=== PATIENT | male | born 1990 | race Two or more races ===

== ENCOUNTER 2025-07-22 14:41 | Emergency (ER) | payer MEDICAID, SELFPAY ==
[2025-07-22 14:42] VITALS: BMI 34.4
[2025-07-22 14:53] VITALS: BP 151/89; PULSE 95; RESP 18; TEMP 36.4; O2SAT 97
--- NOTE | 2025-07-22 16:03 | EDRME_ITS ---
Rapid Medical Screening Exam E Arrival date/time: 07/22/25 14:41 This is a 35-year-old male that is brought in by mother with complaints of right eye pressure right eye pain. Per patient's mother who is historian because patient is disabled and is bipolar. Patient started having symptoms 3 years ago. Patient sees a doctor in [facility]. Mom does not know the actual diagnoses but was told that the cornea is hard and he possibly needed a transplant. Patient recently saw dog license officer supervisor in May and per dog license officer supervisor eye looked like it was healing. Per patient's mother on Wednesday 3 days ago eye started hurting and is more swollen. Patient complains of eye pressure, eye swelling, and eye pain. I have greeted and performed a focused initial assessment of this patient. current eye drops: [id number] eye ointment. Tobramycin.dexamethazone eye drops. Initial appropriate labs ordered at this time. A comprehensive ED assessment and evaluation of the patient and analysis of all test and completion of medical decision making process will be conducted by additional ED provider. Chief Complaint: Eye Problems Time Seen by Provider: 07/22/25 14:56 Vital signs: Vital Signs Temperature 97.6 F 07/22/25 14:53 Pulse Rate 95 07/22/25 14:53 Respiratory Rate 18 07/22/25 14:53 Blood Pressure 151/89 H 07/22/25 14:53 Pulse Oximetry (%) 97 07/22/25 14:53 Oxygen Delivery Method Room Air 07/22/25 14:53
--- NOTE | 2025-07-22 16:27 | EDNOTE_ITS ---
ED Eye Problem RME/HPI General Chief complaint: Eye Problems Stated complaint: PRESSURE RIGHT EYE X 3 DAYS, HX OF Time Seen by Provider: 07/22/25 14:56 Arrival date/time: 07/22/25 14:41 This is a 35-year-old male that is brought in by mother with complaints of right eye pressure right eye pain. Per patient's mother who is historian because patient is disabled and is bipolar. Patient started having symptoms 3 years ago. Patient sees a doctor in [facility]. Mom does not know the actual diagnoses but was told that the cornea is hard and he possibly needed a transplant. Patient recently saw cooperage shop supervisor in May approximately and per cooperage shop supervisor eye looked like it was healing. Per patient's mother on Wednesday 3 days ago eye started hurting and is more swollen. Patient complains of eye pressure, eye swelling, and eye pain. I have greeted and performed a focused initial assessment of this patient. Pt hx of bipolar disorder current eye drops: [id number] eye ointment. Tobramycin.dexamethazone eye d RME / HPI RME / HPI Narrative: 07/22/25 14:41 This is a 35-year-old male that is brought in by mother with complaints of right eye pressure right eye pain. Per patient's mother who is historian because patient is disabled and is bipolar. Patient started having symptoms 3 years ago. Patient sees a doctor in [facility]. Mom does not know the actual diagnoses but was told that the cornea is hard and he possibly needed a transplant. Patient recently saw cooperage shop supervisor in May approximately and per cooperage shop supervisor eye looked like it was healing. Per patient's mother on Wednesday 3 days ago eye started hurting and is more swollen. Patient complains of eye pressure, eye swelling, and eye pain. I have greeted and performed a focused initial assessment of this patient. current eye drops: [id number] eye ointment. Tobramycin.dexamethazone eye drops. Initial appropriate labs ordered at this time. A comprehensive ED assessment and evaluation of the patient and analysis of all test and completion of medical decision making process will be conducted by additional ED provider. Related Data Home Medications ?Medication ?Instructions ?Recorded ?Confirmed quetiapine 400 mg tablet,extended 600 mg PO DAILY ##0 02/10/13 03/28/18 release 24 hr (Seroquel XR) zolpidem 5 mg tablet (Ambien) 5 mg PO HS #0 tabs 07/2603/28/18 aripiprazole 15 mg tablet (Abilify) 15 mg PO QDAY #0 t abs 08/12/14 03/28/18 Previous Rx's ?Medication ?Instructions ?Recorded ibuprofen 800 mg tablet 800 mg PO TID PRN pain #30 t abs 03/12/21 doxycycline hyclate 100 mg tablet 100 mg PO BID #20 ta bs 01/03/24 Allergies Allergy/AdvReac Type Severity Reaction Status Date / Time No Known Allergies Allergy Verified 07/22/25 14:44 Review of Systems Review of Systems Systems Reviewed: All systems reviewed, normal except as documented Past Medical History Past Medical History CARDIAC: Negative Congestive Heart Failure RESPIRATORY: Negative Chronic Obstructive Pulmonary Disease (COPD) GENITOURINARY: Negative Renal Disease ENDOCRINE: Negative Diabetes Mellitus Type 1 or Diabetes Mellitus Type 2 OTHER HISTORY: Negative Blood Transfusions Social History SMOKING STATUS: Current every day smoker Travel History EBOLA RISK: No ED Exam Narrative Physical exam: VITAL SIGNS: Reviewed. GENERAL APPEARANCE: Alert and interactive, follows commands, no acute distress eyes: Right eye has corneal edema and right corneal enlargement. Conjunctive looks erythemic. HEAD AND FACE: Non-traumatic. ENT: PERRL, conjuctiva pink and clear, eyelid no trauma, Mucous membrane moist. NECK: Supple, nontender, no nuchal rigidity. CHEST: No tenderness, no crepitus, no paradoxical movement, no retractions. LUNGS: breathing even and unlabored HEART: Regular rate, cap refill less than 2 seconds ABDOMEN: Soft, nondistended NEUROLOGICAL: Gross motor function intact sensory function intact, Appropriate for age. MUSCULOSKELETAL: low back nontender, full range of motion. EXTREMITIES: No redness no swelling no skin breakdown on bilateral foot and leg. Distal neurovascular status intact bilateral foot SKIN: Color pink, dry, no rash, no lacerations, no abrasions, no contusions. Course Quality Measures none Vital Signs Vital signs: Vital Signs Temperature 97.6 F 07/22/25 14:53 Pulse Rate 95 07/22/25 14:53 Respiratory Rate 18 07/22/25 14:53 Blood Pressure 151/89 H 07/22/25 14:53 Pulse Oximetry (%) 97 07/22/25 14:53 Oxygen Delivery Method Room Air 07/22/25 14:53 Eye MDM Narrative MDM Narrative:: I tried calling cooperage shop supervisor office [facility]. There was a doctor on-call and answered the phone. He states he is not familiar with patient's case as he works for a different practice. He does not have access to [facility] medical records. I discussed case with Dr. Erickson who came and assessed patient at the bedside. This is a chronic issue. Per patient mother patient has little to no vision on that right eye but according to mother his vision has worsened in the in the last 3 days. Patient is not the best historian when asked if he can see from the right eye. Patient states he can. we spoke to patient's mother at length and explained to her that we do not have an cooperage shop supervisor here and he will need to be transferred to a facility that has an cooperage shop supervisor. I explained to them that this can take hours because we first had to find an accepting facility and then get him transferred. Mother stated that she does not want to wait and she can take him to [facility] herself. I explained the importance of follow-up with an cooperage shop supervisor as soon as possible. Patient mother verbalizes that she will take her son right now to [facility] to be assessed by an cooperage shop supervisor. At this time patient mother would like to be discharged so she can drive her son to [facility]. Dragon dictation: Although this document has been carefully reviewed, there may still be some phonetic and other typographical errors. These errors are purely grammatical due to imperfections in the software program and should not be construed in any way to compromise the substance of the patient's medical care during this visit. Patient data External records reviewed:: [facility] [place] [facility] previous records Clinical information provided by:: patient and parent Social determinants that could affect healthcare access:: none Patient has the following chronic illnesses:: see hpi How is presenting disease/condition affected by chronic disease/condition?: uneffected by Evaluation data The following diagnostics were reviewed and interpreted by me:: other (specify) (none ) Lab and/or radiology exams considered but not ordered:: see note Interpretation Summary: see note Medications / Prescriptions Medications or Prescriptions considered but not ordered:: none Medication administrations:: see note Consultations Consultation(s) initiated? (list below): No Diagnosis Eye Problem Differential Diagnosis: corneal abrasion, conjunctivitis, acute iritis, periorbital cellulitis, subconjunctival hemorrhage and other (corneal injury ) Most likely diagnosis given after review of the tests above:: chronic corneal problems Admission Indicated Admission indicated?: not indicated Admission Request Was there a request for admission?: No Disposition Plan Disposition Plan: Discharge Discharge Attestation Discharge Attestation: The patient and all family members were given an opportunity to ask questions and understood the discharge instructions. Discharge instructions specifically effects, indications for sooner follow up or return to the emergency department, and the expected course of current diagnosis. Patient condition: Stable Discharge Plan Plan Patient Disposition: HOME (Self Care) Patient condition on transfer: Stable Prescriptions/Referrals Prescriptions/Med Rec: No Action quetiapine [Seroquel XR] 400 MG tablet extended release 24 hr 600 mg PO DAILY Qty: 0 zolpidem [Ambien] 5 MG tablet 5 mg PO HS Qty: 0 aripiprazole [Abilify] 15 MG tablet 15 mg PO QDAY Qty: 0 ibuprofen 800 mg tablet 800 mg PO TID PRN (Reason: pain) Qty: 30 0RF doxycycline hyclate 100 mg tablet 100 mg PO BID Qty: 20 0RF Referrals: No Primary/Family,Physician [Primary Care Provider] - In 1 week Problem List Clinical Impression: Acute pain in right eye Patient/Caregiver Discharge Instructions Discharge Activity: activity as tolerated Education Materials: Corneal Injury Additional Instructions: Please follow-up with cooperage shop supervisor as scheduled. Follow up with primary provider in 1-2 days. Come back to ED if symptoms change or worsen Print Language: Gibraltarian Stand Alone Forms: [facility] Award Info., Patient Portal Info Letter PA/GROVE WORKER Supervising Physician PA/GROVE WORKER Supervising Physician: paul
== END 2025-07-22 17:09 | disposition home or self-care (01) ==
PROVIDERS: Emergency Provider Emergency Medicine
DX: H57.11 Ocular pain, right eye (principal)
CPT/HCPCS: 99281